=== PATIENT | female | born 1955 | race Caucasian/White ===

== ENCOUNTER → 2021-05-13 | Outpatient (CLI) | payer MEDICARE ==
--- NOTE | 2021-05-13 11:31 | KCIC ---
EXAM: Cervical spine CT without contrast. HISTORY: Neck pain. TECHNIQUE: Computed tomographic images of the cervical spine were obtained without contrast. Multipla merly reformatting was performed. *One or more of the following individualized dose reduction techniques were utilized for this examina tion: 1. Automated exposure control. 2. Adjustment of the mA and/or kV according to patient size. 3. Use of iterative reconstruction technique. COMPARISON: None. FINDINGS: There is cervical kyphosis centered at C4. There is 3 mm anterolisthesis of C2 on C3 and C3 on C4. There is degenerative endplate remodeling with disc space narrowing, osteophytosis, and Schmo rl's node formation primarily at C4-C5, C5-C6 and C6-C7. There is no fracture. There is no suspicious osseous lesion. There is multilevel facet arthropathy, described in detail below. The skull base and posterior fossa are unremarkable. There is no neck lymphadenopathy. There is a het erogeneous left thyroid lobe with suspected dominant nodule measuring 1.8 cm. At C2-C3, there is endplate remodeling. There is moderate left facet arthropathy. There is mild-to-mo derate left foraminal stenosis. At C3-C4, there is a disc bulge and endplate remodeling. There is mild right and severe left facet ar thropathy. There is moderate left foraminal stenosis. At C4-C5, there is a disc bulge and endplate osteophytosis. There is mild lateral facet arthropathy. There is right uncovertebral arthropathy. There is moderate to severe right and mild left foraminal s tenosis. There is mild central canal stenosis. At C5-C6, there is a posterior central to right paracentral disc protrusion and osteophyte complex an d slight ossification of the posterior longitudinal ligament superimposed on a disc bulge and endplat e osteophytosis. There is mild right facet arthropathy. There is bilateral uncovertebral therapy. The re is severe bilateral foraminal stenosis. There is moderate central canal stenosis. At C6-C7, there is a left paracentral disc protrusion and osteophyte complex and slight ossification of the posterior longitudinal ligament superimposed on a disc bulge and endplate osteophytosis. There is bilateral uncovertebral arthropathy. There is severe bilateral foraminal stenosis. There is moder ate central canal stenosis. IMPRESSION: 1. Multilevel degenerative change involving the cervical spine, described in detail above. This is as sociated with mild to moderate left foraminal stenosis at C2-C3, moderate left foraminal stenosis at C3-C4, moderate to severe right and mild left foraminal and mild central canal stenosis at C4-C5, and severe bilateral foraminal and moderate central canal stenosis at C5-C6 and C6-C7. 2. Heterogeneous left thyroid lobe containing a suspected dominant nodule measuring 1.8 cm. This can be better assessed with a thyroid sonogram. Electronically signed by: Judy Lozoya MD (05/13/2021 11:28 AM) [id number]
== END ==
LOC: KCIC CT 10:22
PROVIDERS: ATTEND Family Medicine
DX: M47.812 Spondylosis without myelopathy or radiculopathy, cervical region (principal); M50.222 Other cervical disc displacement at C5-C6 level; M48.02 Spinal stenosis, cervical region; M40.292 Other kyphosis, cervical region; M25.78 Osteophyte, vertebrae
CPT/HCPCS: 72125

== ENCOUNTER → 2021-05-29 | Outpatient (CLI) | payer MEDICARE ==
--- NOTE | 2021-05-29 16:08 | KCIC ---
EXAM: ULTRASOUND SOFT TISSUE NECK CLINICAL HISTORY: Reason: THYROID NODULE seen on CT. COMPARISON: None available. TECHNIQUE: Ultrasound examination of the thyroid gland was performed FINDINGS: The longitudinal and AP and transverse dimensions of the right lobe are 4.2 cm and 0.8 cm and 1.2 cm respectively. There is a small isoechoic solid nodule within the lower pole seen only in transverse p jm. This cannot be seen longitudinally given the inferior extent of the right lobe. This is conside red a TR 3 lesion; FNA if greater than or equal to 25 mm, follow-up if greater than or equal to 15 mm . It measures 8 mm in the transverse plane. The isthmus measures 5 mm in thickness. The longitudinal and AP and transverse dimensions of the left lobe are 3.2 cm and 0.9 cm and 1.2 cm r espectively. No thyroid nodule is seen on the left side. IMPRESSION: Small 8 mm nodule of the right lobe. Electronically signed by: Domo Eubanks MD (05/29/2021 4:05 PM) [id number]
== END ==
LOC: KCIC US 10:43
PROVIDERS: ATTEND Family Medicine
DX: E04.1 Nontoxic single thyroid nodule (principal)
CPT/HCPCS: 76536

== ENCOUNTER → 2021-09-02 | Outpatient (CLI) | payer MEDICARE ==
--- NOTE | 2021-09-02 16:08 | KCIC ---
EXAM: Pelvis and left hip, 2 views. HISTORY: Pain. COMPARISON: None. FINDINGS: A frontal view of the pelvis and frog-leg view of the left hip are obtained. There is bilat eral hip joint space narrowing. There is marginal femoral head spurring. There are calcifications or ossicles involving the left greater than right acetabular labrum is. There is a generator overlying t he right buttock with lead extending to the level of the left sacrum. IMPRESSION: 1. Mild left greater than right hip osteoarthritis. 2. No acute osseous finding. Electronically signed by: Judy Lozoya MD (09/02/2021 4:06 PM) [id number]
== END ==
LOC: KCIC 14:21
PROVIDERS: ATTEND Nurse Practitioner
DX: M16.0 Bilateral primary osteoarthritis of hip (principal)
CPT/HCPCS: 73501

== ENCOUNTER → 2021-09-30 | Outpatient (CLI) | payer MEDICARE ==
--- NOTE | 2021-09-30 09:04 | KCIC ---
CT THORAX WO History: Pulmonary nodule. Shortness of breath. History of Covid. COPD. Technique: Noncontrast CT of the chest was performed. Coronal and sagittal reconstructions were perfo rmed. Exposure: One or more of the following individualized dose reduction techniques were utilized for thi s examination: 1. Automated exposure control 2. Adjustment of the mA and/or kV according to patient size 3. Use of iterative reconstruction technique. Comparison: None Findings: Chest: No pathologic lymphadenopathy. Mild coronary artery calcifications. Left-sided pacemaker noted . No consolidation or pleural effusion. No pneumothorax. Calcified hilar and mediastinal lymph nodes as well as scattered calcified pulmonary nodules bilatera lly largest within the right lower lobe, likely prior granulomatous disease. Elevation the right lynne diaphragm with adjacent atelectasis. Minimal additional scattered linear atelectasis. Upper abdomen: Left hepatic lobe cyst measures 2.1 cm. Additional tiny right hepatic lobe hypodensiti es, too small to further characterize. Bones: No pathologic osseous lesions. Impression: 1. No acute thoracic pathology. Electronically signed by: Ron Croft DO (09/30/2021 9:01 AM) [facility]
== END ==
LOC: KCIC CT 07:57
PROVIDERS: ATTEND Internal Medicine Pulmonary Disease
DX: R91.8 Other nonspecific abnormal finding of lung field (principal); I25.10 Atherosclerotic heart disease of native coronary artery without angina pectoris; I89.8 Other specified noninfective disorders of lymphatic vessels and lymph nodes; K76.89 Other specified diseases of liver; R06.02 Shortness of breath; Z95.0 Presence of cardiac pacemaker
CPT/HCPCS: 71250

== ENCOUNTER → 2021-11-20 | Outpatient (CLI) | payer MEDICARE ==
[2021-11-20 14:06] VITALS: BP 116/72
[2021-11-20 14:14] VITALS: BP 117/66
[2021-11-20 14:21] VITALS: BP 115/63
[2021-11-20 14:26] VITALS: BP 109/66
--- NOTE | 2021-11-20 14:29 | NUR ---
Patient's [employer] pacemaker set to Atrial pacing at a rate of 90 by Bradley the [employer] insurance representative for study. Patient tolerated procedure well, see vitals in intervention set. Bradley returned patient's pacemaker to original settings and patient left MRI area without any problems.
--- NOTE | 2021-11-21 09:02 | RAD ---
MR CERVICAL SPINE WO DATE: 11/20/2021 1:40 PM INDICATION: CERVICAL RADICULOPATHY, CERVICALGIA TECHNIQUE: Multiplanar multisequence magnetic resonance imaging of the cervical spine was performed w ithout administration of intravenous contrast using the standard cervical spine protocol. COMPARISON: CT 05/13/2021. FINDINGS: Reversal of the cervical lordosis. No acute fracture. Multilevel degenerative disc desiccation and d isc height loss, worst and severe at C4-5, C5-6, and C6-7. No marrow replacing process to suggest mal ignancy. The spinal cord is normal in signal intensity. On the limited views of the cranial cavity and brain, the cerebellum and juan have normal morphology and signal characteristics. No Chiari malformation. No soft tissue abnormality. Normal signal voids are present in the vertebral arteries. C2-3: Moderate left facet arthropathy. Mild left neural foraminal narrowing. No spinal canal stenosis . C3-4: Disc osteophyte complex. Uncovertebral hypertrophy. Moderate left facet arthropathy. Moderate r ight and moderate to severe left neural foraminal narrowing. Mild spinal canal stenosis. C4-5: Disc osteophyte complex. Uncovertebral hypertrophy. Severe bilateral neural foraminal narrowing . Moderate spinal canal stenosis. C5-6: Disc osteophyte complex. Uncovertebral hypertrophy. Severe bilateral neural foraminal narrowing . Moderate spinal canal stenosis. C6-7: Disc osteophyte complex with left paracentral protrusion. Uncovertebral hypertrophy. Severe rakel ateral neural foraminal narrowing. Severe spinal canal stenosis. C7-T1: Mild facet arthropathy. No significant spinal canal stenosis or neural foraminal narrowing. IMPRESSION: Advanced cervical spondylosis, worst at C6-7 with severe spinal canal stenosis. Multilevel severe suma ral foraminal narrowing as above. Electronically signed by: Zane Pedraza MD (11/21/2021 9:00 AM) [id number]
== END ==
LOC: MRI 13:34
PROVIDERS: ATTEND Neurological Surgery
DX: M47.22 Other spondylosis with radiculopathy, cervical region (principal); M48.02 Spinal stenosis, cervical region; M48.8X3 Other specified spondylopathies, cervicothoracic region; M25.78 Osteophyte, vertebrae; M50.323 Other cervical disc degeneration at C6-C7 level
CPT/HCPCS: 72141